=== PATIENT | female | born 1940 ===

== ENCOUNTER 2017-02-25 21:09 | Emergency (ER) | payer MEDICARE, OTHER ==
[2017-02-25 21:12] VITALS: BMI 25.4
[2017-02-25 21:28] VITALS: BP 128/95; RESP 22; TEMP 99.8; O2SAT 91
--- NOTE | 2017-02-25 22:34 | ED PDOC ---
HPI: Abdomen Time Seen by Provider: 02/25/17 21:58 Chief Complaint (Nursing): GI Problem Chief Complaint (Provider): GI Problem History Per: Family (daughter) Onset/Duration Of Symptoms: Hrs (prior to arrival ) Additional Complaint(s): Eliz Cole, 76 year old female brought to the ED by her daughter for PEG tube displacement. The patients daughter states the patients PEG tube fell out by accident this evening prior to arrival. The patients daughter has no other complaints. Of note, the patient is demented and nonverbal at baseline. PMD: Saul Murray MD Past Medical History Reviewed: Historical Data, Nursing Documentation, Vital Signs Vital Signs: Last Vital Signs Temp 99.8 F H 02/25/17 21:27 Pulse 112 H 02/25/17 21:27 Resp 22 02/25/17 21:27 BP 128/95 H 02/25/17 21:27 Pulse Ox 91 L 02/26/17 00:10 - Medical History PMH: Alzheimer's Disease, Dementia, Schizophrenia - Family History Family History: States: Unknown Family Hx - Social History Current smoker - smoking cessation education provided: No Ex-Smoker (has not smoked in the last 12 months): No Alcohol: None Drugs: Denies - Allergies Allergies/Adverse Reactions: Allergies Allergy/AdvReac Type Severity Reaction Status Date / Time No Known Allergies Allergy Verified 02/25/17 21:12 Review of Systems ROS Statement: Except As Marked, All Systems Reviewed And Found Negative Review Of Systems: ROS cannot be obtained secondary to pt's inabilty to answer questions. Physical Exam - Reviewed Nursing Documentation Reviewed: Yes Vital Signs Reviewed: Yes - Physical Exam Appears: Positive for: Well, Non-toxic, No Acute Distress Head Exam: Positive for: ATRAUMATIC, NORMAL INSPECTION, NORMOCEPHALIC Skin: Positive for: Normal Color, Warm, DRY Eye Exam: Positive for: EOMI, Normal appearance, PERRL ENT: Positive for: Normal ENT Inspection Neck: Positive for: Normal, Painless ROM, Supple Cardiovascular/Chest: Positive for: Regular Rate, Rhythm, Chest Non Tender Respiratory: Positive for: Normal Breath Sounds. Negative for: Respiratory Distress Gastrointestinal/Abdominal: Positive for: Soft, Other (PEG tube site is intact; minimal surrounding erythema). Negative for: Tenderness Back: Positive for: Normal Inspection Extremity: Positive for: Normal ROM. Negative for: Deformity Neurologic/Psych: Positive for: Alert, Oriented - ECG O2 Sat by Pulse Oximetry: 91 (RA) Pulse Ox Interpretation: Other (rechecked- 98%) Medical Decision Making Medical Decision Making: Impression: PEG tube dislodgment Procedure Note: Cleaned patient's 20F tube (unable to locate in hospital), balloon tested (was deflated earlier). Replaced at bedside without difficulty. Contrast material injected and adequate contrast uptake seen in stomach and duodenum. Of note, patient tachycardic upon discharge, patient agitated and anxious according to family because she has not received her clonazepam nor lunesta and she is past her usual bedtime. HR 109. Scribe Attestation: Documented by Whit Randolph, acting as a scribe for Antoni Dillon MD. Provider Scribe Attestation: All medical record entries made by the Scribe were at my direction and personally dictated by me. I have reviewed the chart and agree that the record accurately reflects my personal performance of the history, physical exam, medical decision making, and the department course for this patient. I have also personally directed, reviewed, and agree with the discharge instructions and disposition. Disposition - Clinical Impression Clinical Impression: Dislodged gastrostomy tube - Disposition Referrals: Carlito Lee MD [Staff Provider] - Disposition: Routine/Home Disposition Time: 00:12 Condition: IMPROVED Instructions: How to Use and Care for Your PEG Tube (ED) Print Language: [place]ORE[place]
[2017-02-25] MEDS ORDERED: Iohexol 240 (50 ml) PO ONE (23:04)
[2017-02-25] MEDS ORDERED: Iohexol 240 (50 ml) ONE ×2 (23:10→23:19)
--- NOTE | 2017-02-25 23:52 | RAD ---
EXAM: XR Abdomen, 1 View CLINICAL HISTORY: 76 years old, female; Condition or disease; Other: Peg tube; Additional info: S/P peg tube replacement TECHNIQUE: Frontal supine view of the abdomen/pelvis. COMPARISON: No relevant prior studies available. FINDINGS: Gastrointestinal tract: Contrast opacifies both the stomach and first portion of the duodenum. Bones/joints: Unremarkable. IMPRESSION: Injected contrast opacifies both the stomach in the first portion of the duodenum, as detailed above.
[2017-02-26 00:11] VITALS: PULSE 111
== END 2017-02-26 00:15 | disposition home or self-care (01) ==
LOC: H.ER 21:09
DX: Z43.1 Encounter for attention to gastrostomy (principal)

== ENCOUNTER 2017-04-05 00:31 | Emergency (ER) | payer MEDICARE, OTHER ==
[2017-04-05 00:34] VITALS: BMI 25.4
[2017-04-05 00:46] VITALS: BP 107/72; PULSE 128; RESP 18; TEMP 99.6
[2017-04-05] MEDS ORDERED: Iohexol 240 (50 ml) PO ONE (02:16)
--- NOTE | 2017-04-05 02:38 | ED PDOC ---
HPI: General Adult Time Seen by Provider: 04/05/17 00:47 Chief Complaint (Nursing): Medical Clearance Chief Complaint (Provider): dislodged G-tube History Per: Patient History/Exam Limitations: no limitations Onset/Duration Of Symptoms: Mins (prior to arrival) Additional History Per: Family Additional Complaint(s): Eliz Cole is a 77 year old female, with a past medical history of dementia, schizophrenia and Alzheimer's, who presents to the emergency department with her family complaining of G-tube falling out prior to arrival. Her family reports she was having a coughing fit resulting in the G-tube coming out. No further medical complaints. PMD: Saul Murray Past Medical History Reviewed: Historical Data, Nursing Documentation, Vital Signs Vital Signs: Last Vital Signs Temp 99.6 F 04/05/17 00:43 Pulse 128 H 04/05/17 00:43 Resp 18 04/05/17 00:43 BP 107/72 04/05/17 00:43 Pulse Ox - Medical History PMH: Alzheimer's Disease, Dementia, Schizophrenia - Family History Family History: States: Unknown Family Hx - Social History Current smoker - smoking cessation education provided: No Alcohol: None Drugs: Denies - Allergies Allergies/Adverse Reactions: Allergies Allergy/AdvReac Type Severity Reaction Status Date / Time No Known Allergies Allergy Verified 02/25/17 21:12 Review of Systems ROS Statement: Except As Marked, All Systems Reviewed And Found Negative Constitutional: Negative for: Fever Gastrointestinal: Negative for: Nausea, Vomiting Physical Exam - Reviewed Nursing Documentation Reviewed: Yes Vital Signs Reviewed: Yes - Physical Exam Appears: Positive for: Well, Non-toxic, No Acute Distress Head Exam: Positive for: ATRAUMATIC, NORMAL INSPECTION, NORMOCEPHALIC Skin: Positive for: Normal Color, Warm, Dry Eye Exam: Positive for: EOMI, Normal appearance, PERRL ENT: Positive for: Normal ENT Inspection Neck: Positive for: Normal, Painless ROM Cardiovascular/Chest: Positive for: Regular Rate, Rhythm, Tachycardia (Note: Chronically tachy) Respiratory: Positive for: Normal Breath Sounds. Negative for: Respiratory Distress Gastrointestinal/Abdominal: Positive for: Normal Exam, Bowel Sounds, Soft, Other (G-tube site clean no drainage. No cellulitis. Belly soft) Back: Positive for: Normal Inspection Extremity: Positive for: Normal ROM Neurologic/Psych: Positive for: Alert, Oriented, Mood/Affect (Non-verbal and agitated-"baseline" ) Medical Decision Making Medical Decision Making: Initial Impression: Dislodged G-tube Initial Plan: --Omnipaque 240 (50ml) --Abdomen portable 1 view [RAD] --reevaluation Gastrostomy tube was replaced at bedside without complication. 3:46 FINDINGS: Intraperitoneal space: Limited evaluation for pneumoperitoneum on supine view. Gastrointestinal tract: Gastrostomy tube. Contrast within gastrostomy tube, stomach, proximal small bowel. No definite extravasation. No dilation. Bones/joints: No acute fracture. Degenerative changes of spine. Tubes, lines and devices: Leads overlying abdomen. IMPRESSION: 1. Gastrostomy tube in place. 2. Incidental/non-acute findings are described above. Scribe Attestation: Documented by Elio Anton, acting as a scribe for Antoni Dillon MD. Provider Scribe Attestation: All medical record entries made by the Scribe were at my direction and personally dictated by me. I have reviewed the chart and agree that the record accurately reflects my personal performance of the history, physical exam, medical decision making, and the department course for this patient. I have also personally directed, reviewed, and agree with the discharge instructions and disposition. Disposition - Clinical Impression Clinical Impression: Dislodged gastrostomy tube - Disposition Referrals: Saul Murray MD [Family Provider] - Disposition Time: 03:45 Condition: STABLE Instructions: How to Use and Care for Your PEG Tube (ED) Forms: [facility] ([place]) Print Language: [place]
--- NOTE | 2017-04-05 03:46 | RAD ---
EXAM: XR Abdomen, 1 View CLINICAL HISTORY: 77 years old, female; Screening exam; Other: Replaced g tube TECHNIQUE: Frontal supine view of the abdomen/pelvis. COMPARISON: CR - ABDOMEN PORTABLE 1 VIEW 02/25/2017 11:11:23 PM FINDINGS: Intraperitoneal space: Limited evaluation for pneumoperitoneum on supine view. Gastrointestinal tract: Gastrostomy tube. Contrast within gastrostomy tube, stomach, proximal small bowel. No definite extravasation. No dilation. Bones/joints: No acute fracture. Degenerative changes of spine. Tubes, lines and devices: Leads overlying abdomen. IMPRESSION: 1. Gastrostomy tube in place. 2. Incidental/non-acute findings are described above.
== END 2017-04-05 04:32 | disposition home or self-care (01) ==
LOC: H.ER 00:31
DX: Z43.1 Encounter for attention to gastrostomy (principal); F02.80 Dementia in other diseases classified elsewhere, unspecified severity, without behavioral disturbance, psychotic disturbance, mood disturbance, and anxiety; G30.9 Alzheimer's disease, unspecified; Z93.1 Gastrostomy status
CPT/HCPCS: 74000; 99281; Q9966